=== PATIENT | male | born 1990 | race African-American/Black ===

== ENCOUNTER 2019-11-04 13:59 | Emergency (ER) | payer MEDICAID ==
[~2019-11-04] VITALS: Ht 157.5 cm; Wt 64.4 kg
[2019-11-04 14:14] VITALS: BP_SYST 116
--- NOTE | 2019-11-04 14:14 | NUR ---
Patient to ER bed 5 to gown for evaluation. Side rails up.
--- NOTE | 2019-11-04 14:20 | NUR ---
Pt came to ER for urinary retention, rivera catheter placed, VSS, resting in [facility], nonverbal, awaiting MD.
--- NOTE | 2019-11-04 14:30 | NUR ---
ER at bedside examining patient.
[2019-11-04 15:20] LABS: BILIRUBIN,URINE NEGATIVE (NEGATIVE); BLOOD, URINE NEGATIVE (NEGATIVE); CLARITY/URINE CLEAR (CLEAR); COLOR,URINE YELLOW (YELLOW); GLUCOSE,URINE NEGATIVE (NEGATIVE); KETONES,URINE NEGATIVE (NEGATIVE); LEUKOCYTE ESTERASE ,URINE NEGATIVE (NEGATIVE); NITRITE, URINE NEGATIVE (NEGATIVE); PROTEIN URINE NEGATIVE (NEGATIVE); UROBILINOGEN,URINE 0.2 (0.2-1.0)
[2019-11-04 15:25] LABS: BASOPHILS # (AUTO) 0.2 K/uL (0.0-0.2); BASOPHILS % (AUTO) 1.6 % (0.0-2.0); EOSINOPHILS % (AUTO) 0.4 % (0.0-4.0); HEMOGLOBIN 14.8 g/dL (14.0-18.0); LYMPHOCYTES % (AUTO) 8.4 % (20.5-51.5); MEAN CORPUSCULAR HEMOGLOBIN 31 pg (27-31); MEAN CORPUSCULAR HGB CONC 33 % (32-36); MEAN CORPUSCULAR VOLUME 94 fL (79.0-98.0); MONOCYTES % (AUTO) 8.6 % (1.7-9.3); NEUTROPHILS # (AUTO) 9.4 K/uL (1.8-7.7); PLATELET COUNT (AUTO) 318 K/uL (130-430); RED BLOOD CELL COUNT(AUTO) 4.78 MIL/uL (4.2-6.2); RED CELL DISTRIBUTION WIDTH 17.2 % (9.0-15.0); WHITE BLOOD COUNT (AUTO) 11.6 K/uL (4.8-10.8)
--- NOTE | 2019-11-04 15:31 | NUR ---
Pt resting in gurney VSS, no distress noted, AO1 tracks with eyes.
[2019-11-04 16:11] LABS: CALCIUM 9.2 mg/dL (8.4-11.0); CREATININE 0.71 mg/dL (0.55-1.30); POTASSIUM 4.3 mmol/L (3.5-5.1)
[2019-11-04 16:16] LABS: ALBUMIN 2.7 g/dL (3.4-4.8); TOTAL BILIRUBIN 0.4 mg/dL (0.0-1.0)
--- NOTE | 2019-11-04 16:30 | NUR ---
Patient given written and verbal discharge instructions and verbalizes understanding. ER MD discussed with patient the results and treatment provided. Patient in stable condition. ID arm band removed. Patient educated on pain management and to follow up with PMD. Pain Scale 0/10. Opportunity for questions provided and answered. Medication side effect fact sheet provided.
[2019-11-04 16:31] VITALS: BP_SYST 105
== END 2019-11-04 16:31 | disposition home or self-care (01) ==
LOC: SED 13:59
DX: R33.9 Retention of urine, unspecified (principal)
CPT/HCPCS: 36415; 80053; 81003; 85025; 99284

== ENCOUNTER 2020-02-05 12:27 | Emergency (ER) | payer MEDICAID ==
[~2020-02-05] VITALS: Ht 157.5 cm; Wt 59.0 kg
[2020-02-05 12:27] VITALS: BP_SYST 132
[2020-02-05] MEDS ORDERED: GASTROGRAFIN 120 ML ONE (13:34)
[2020-02-05 16:20] VITALS: BP_SYST 115
== END 2020-02-05 14:24 | disposition home or self-care (01) ==
LOC: SED 12:27
DX: T83.091A Other mechanical complication of indwelling urethral catheter, initial encounter (principal); R31.9 Hematuria, unspecified
CPT/HCPCS: 51702; 74240; 99284; Q9963

== ENCOUNTER 2020-04-29 11:14 | Emergency (ER) | payer MEDICAID ==
[~2020-04-29] VITALS: Ht 165.1 cm; Wt 68.0 kg
[2020-04-29 11:20] VITALS: BP_SYST 127
[2020-04-29 13:02] VITALS: BP_SYST 129
== END 2020-04-29 13:02 | disposition home or self-care (01) ==
LOC: SED 11:14
DX: N39.0 Urinary tract infection, site not specified (principal); K21.9 Gastro-esophageal reflux disease without esophagitis
CPT/HCPCS: 81002; 87086; 99284